=== PATIENT | female | born 1975 | race Caucasian/White ===

== ENCOUNTER 2018-04-28 06:21 | Day surgery (SDC) | payer OTHER ==
[2018-04-28] MEDS ORDERED: LACTATED RINGER'S 1,000 ML IV (07:30)
[2018-04-28] MEDS ORDERED: CEFAZOLIN 1 GM INJ (09:23)
[2018-04-28] MEDS ORDERED: PROPOFOL 20 ML (09:23)
[2018-04-28] MEDS ORDERED: FENTAnyl 50 MCG/ML VIAL (09:23)
[2018-04-28] MEDS ORDERED: MIDAZOLAM 1 MG/ML 2 ML INJ (09:23)
[2018-04-28] MEDS ORDERED: HYDROmorphONE 1 MG/5 ML IV SYRINGE IV ×3 (09:30)
[2018-04-28] MEDS ORDERED: hydrALAzine 20 MG INJ IV (09:30)
[2018-04-28] MEDS ORDERED: ONDANSETRON 4 MG INJ IV (09:30)
[2018-04-28] MEDS ORDERED: LABETALOL HCL 20MG INJ IV (09:30)
[2018-04-28] MEDS ORDERED: MEPERIDINE 25 MG INJ IV (09:30)
[2018-04-28] MEDS ORDERED: OXYCODONE/ACETAMINOPHEN (5/325) TAB PO (09:30)
[2018-04-28] MEDS ORDERED: METOCLOPRAMIDE 10 MG INJ IV (09:30)
[2018-04-28] MEDS ORDERED: EPHEDrine SULFATE 50 MG/5 ML SYG IV (09:30)
[2018-04-28] MEDS ORDERED: FENTAnyl 50 MCG/ML VIAL IV ×3 (09:30)
[2018-04-28] MEDS ORDERED: DIPHENHYDRAMINE 50 MG INJ IV (09:30)
[2018-04-28] MEDS: STRONG IODINE 14 ML SOLUTION TOP (09:49)
[2018-04-28] MEDS ORDERED: METOCLOPRAMIDE 10 MG INJ (10:02)
[2018-04-28] MEDS ORDERED: ONDANSETRON 4 MG INJ (10:02)
[2018-04-28] MEDS ORDERED: KETOROLAC 30 MG INJ (10:03)
[2018-04-28] MEDS ORDERED: DEXAMETHASONE 4 MG/ML 1 ML INJ (10:03)
[2018-04-28] MEDS ORDERED: ACETAMINOPHEN 325 MG TAB PO (10:30)
== END 2018-04-28 12:40 | disposition home or self-care (01) ==
LOC: SDS 06:21
DX: N72 Inflammatory disease of cervix uteri (principal)
CPT/HCPCS: 57522; 84703; 86850; 86900; 86901; 88305